=== PATIENT | male | born 2000 | race Asian ===

== ENCOUNTER 2022-11-01 10:26 | Emergency (ER) | payer OTHER ==
[~2022-11-01] VITALS: Ht 170.2 cm; Wt 65.9 kg
[2022-11-01] MEDS ORDERED: IBUP-1554 PO (12:39)
[2022-11-01 12:55] VITALS: BP 110/68
== END 2022-11-01 12:58 | disposition home or self-care (01) ==
LOC: EMS 10:33
DX: S00.83XA Contusion of other part of head, initial encounter (principal); W01.0XXA Fall on same level from slipping, tripping and stumbling without subsequent striking against object, initial encounter; Y93.89 Activity, other specified; Y92.89 Other specified places as the place of occurrence of the external cause; Y99.8 Other external cause status
CPT/HCPCS: 70450; 70486; 99284